=== PATIENT | female | born 1985 | race Caucasian/White ===

== ENCOUNTER 2016-11-11 08:19 | Inpatient (IN) | payer OTHER ==
[~2016-11-11] VITALS: Ht 162.6 cm; Wt 85.3 kg
[~2016-11-11 08:19] MED LIST: CIPR500T4 PO; IBUP-1542 PO; NITR-58 PO; PHEN-616 PO
[2016-11-11 08:40] VITALS: Ht 162.6 cm; Wt 85.3 kg
[2016-11-11 08:41] VITALS: BP 115/66; PULSE 73; RESP 16
--- NOTE | 2016-11-11 09:12 | TRIAGE ---
OB Triage Datetime Report Generated by CPN: 11/11/2016 09:12 Datetime: 11/11/2016 09:08 Labor Evaluation Pattern: Normal: <= 5 Contractions in 10 Minutes Resting Tone [place]: Relaxed Contraction Comments: NO UC Heart Rate FHR Baseline Rate: 145 Monitor Mode: External US Variability: Moderate 6-25 bpm Accelerations: 15X15 Decelerations: None Category: Category I Pain Assessment Pain Scale: 4 Pain Presence: Intermittent Pain Type: Contraction Pain Location: Abdomen Pain Goal: 3 Datetime: 11/11/2016 08:45 Vaginal Exam Dilatation (cms): 0.0 Exam By: wliu Datetime: 11/11/2016 08:38 Assessment Type: Triage Maternal Assessment Level of Consciousness: Fully Conscious DTR's/Clonus: DTRs 2+; No Clonus Headache: Denies Blurred Vision: No Respiratory Effort: Unlabored; Regular Rhythm; Equal Expansion Breath Sounds, Left: Clear and Equal Breath Sounds, Right: Clear and Equal Nausea/Vomiting: Denies RUQ Epigastric Pain: Denies Lower Extremities Edema: None Degree: None Upper Extremities Edema: None Degree: None Facial Edema: None Fall Risk Assessment History of Falling: (0) No Secondary Diagnosis: (0) No Ambulatory Aid: (0) Bedrest/Nurse Assist IV Therapy: (0) No Gait: (0) Normal/Bedrest/Immobile Mental Status: (0) Oriented to Own Ability Fall Score: 0 Fall Risk Score Definition: No Risk: No action required Datetime: 11/11/2016 08:36 Time of Arrival: 11/11/2016 08:16 EGA: 31.5 Arrived By: Ambulatory Arrived From: Home Chief Complaint: Pt. came to hospital c/o uc since yesterday 1130 am, q 4mins apart, pain level 4/ 10, deny srom, deny vag. bleeding Movement: Present Contractions: Irregular Time Contractions Began: 11/10/2016 11:30 Rupture of Membranes: Denies Vaginal Bleeding: None Vaginal Discharge: Denies Recent Sexual Intercouse: Denies Abdominal Trauma: Not Applicable Patient Complaints: Contractions Time Provider Notified: 11/11/2016 08:49 Provider Notified: TESSA Initial Plan: r/o ptl
[2016-11-11] MEDS ORDERED: TERBUTALINE 1 MG/ML INJ SC PRN (10:00)
[2016-11-11] MEDS ORDERED: AMPICILLIN 2 GM/NS (PMX) 100 ML IV PRN (10:00)
--- NOTE | 2016-11-11 10:08 | RADRPT ---
PROCEDURE: US OB. CLINICAL INDICATION: Size and dates , labor TECHNIQUE: Multiple sonographic images of the pelvis and gravid uterus were obtained. The images were reviewed on a PACS workstation. COMPARISON: No prior studies are available for comparison. FINDINGS: There is a single viable intrauterine gestation. Cardiac activity is present with 165 beats per min shaji. There is a vertex presentation. The placenta is anterior. There is no evidence for an abruption or placenta previa. Measurements were made in order to determine age. The results are as follows: BPD =8.0 cm HC =27.9 cm AC =27.1 cm FL =5.6 cm Estimated gestational age of approximately 30 weeks and 6 days based on ultrasound measurements. Clinical age: 31 weeks and 5 days. The estimated date of delivery is 01/14/17, based on ultrasound measurements. The EFW = 1619 g, 12.7%, based on LMP age. RPTAT: AA IMPRESSION: Single viable intrauterine gestation of approximately 30 weeks and 6 days based on ultrasound measu rements. .Jah Harris MD, Date Time Electronically viewed and signed by .Jah Harris MD, MD on 11/11/2016 10:08 .S/
[2016-11-11] MEDS: BETAMET NA PHOS/AC(6 MG/ML) 5ML INJ IM SCH (10:24)
--- NOTE | 2016-11-11 10:41 | RADRPT ---
PROCEDURE: US OB biophysical profile. Ultrasound cervix CLINICAL INDICATION: decreased movements, labor TECHNIQUE: Multiple sonographic images of the pelvis were obtained. The images were reviewed on a PACS workstation. In addition transvaginal images of the cervix were obtained. COMPARISON: No prior studies are available for comparison. FINDINGS: There is a single viable intrauterine gestation. Cardiac activity is present with 165 beats per min [place]. There is a vertex presentation. The placenta is posterior. There is no evidence of placental abruption. There is a normal amount of amniotic fluid with an JANETTE = 11.2 cm. The cervix is closed and measures 3.8 cm in length. Biophysical profile: movement 2/2 tone 2/2. breathing 2/2 JANETTE 2/2 Total 03/04 RPTAT: AA . IMPRESSION: Normal biophysical profile. Cervix is closed and measures 3.8 cm in length. . .Jah Harris MD, MD Date Time Electronically viewed and signed by .Jah Harris MD, MD on 11/11/2016 10:41 .S/
[2016-11-11] MEDS: LACTATED RINGER'S 1,000 ML IV SCH ×2 (11:24→18:22)
--- NOTE | 2016-11-11 13:59 | CONS ---
DATE OF ADMISSION: 11/11/2016 DATE OF CONSULTATION: 11/11/2016 REASON FOR CONSULTATION: Admission for labor at 31 and 5/7 week. HISTORY OF PRESENT ILLNESS: Rosamaria Kelly is a 31-year-old 6, para 5 with four term and one premature infant. Five of the infants are living. The due date is 12/29/2016. Gestation is 31 and 5/7 weeks. She came in with labor. Membranes are not ruptured. There is no fever. S he denies health problems. No medications, smoking, drinking or alcohol. She is blood type O posit linda, RPR nonreactive, hepatitis B antigen negative, and HIV negative, group B strep not done. She h ad 3 previous C-sections and the last baby was born at about 35 weeks, weighing 4 pounds 15 ounces, born in [facility] who seems to have delayed speech. I spoke to Mrs. Kelly about the risks related to prematurity such as general risks for delayed dev elopment both mentally as well as muscle tone and control of muscles, neurodevelopmental problems, a s well as respiratory, feeding, infection, transfusion, possible need for line such as umbilical, ar terial, or PICC lines, the risk of infection including spinal tap and many other issues. Survival should be well over 90% at this gestational age, but still risks for the problems related t o prematurity and inherent need for hospitalization until close to the due date or longer. I answered all her questions and there were none at the time of the end of our interview. Thank you very much for allowing me to assist in the care of this family. The mother is receiving s teroids at this time and intravenous hydration. Dictated By: SHARIF WHITMORE/EILEEN Conf#: [id number] DID#: [id number]
[2016-11-11] MEDS: AL HYDROX/MG HYDROX/SIMETH 30 ML CUP PO PRN ×2 (18:17→22:21)
[2016-11-12] MEDS: LACTATED RINGER'S 1,000 ML IV SCH ×2 (02:11→10:25)
[2016-11-12] MEDS: BETAMET NA PHOS/AC(6 MG/ML) 5ML INJ IM SCH (10:19)
[2016-11-12] MEDS ORDERED: ACETAMINOPHEN 325 MG TAB PO PRN (10:30)
[2016-11-12] MEDS: AL HYDROX/MG HYDROX/SIMETH 30 ML CUP PO PRN (10:34)
--- NOTE | 2016-11-12 18:30 | CONS ---
Date/Time of Note Date/Time of Note DATE: 11/12/16 TIME: 18:25 Consultation Date/Type/Reason Admit Date/Time November 12, 2006 Hospital consult and discharge This patient is a 31 years old 6 para 5 with EDC of 01/09/2016 which makes her about 31 weeks and 6 She came to the hospital yesterday complaining of contractions prematurely On examination he did have some contractions the cervical length was performed which was 3.8 Her biophysical profile came out 03/04 The estimated weight of the baby 1619 g patient was hospital was given betamethasone twice 12 hours apart today she is doing better much of contraction heart tone is normal with good variability and occasional acceleration no B-cell Hx of Present Illness She was discharged today and before discharge she was given a new prescription for Procardia 20 mg tablets to be taken every 6 hours She was advised to rest at home and return in clinic in 1 week End of dictation thank Constitutional: improved, No chills, No diaphoresis, No disoriented, No febrile, No no complaints, No other, No poor po, No requiring IVF, No requiring O2 Eyes: No discharge, No no complaints, No other, No pain, No redness, No visual change ENT: No bleeding, No congestion, No discharge, No dysphagia, No no complaints, No other, No pain, No sore throat Respiratory: No cough, No no complaints, No other, No pain, No pleuritic pain, No shortness of breath, No sputum, No wheezing Cardiovascular: No chest pain, No edema, No lightheadedness, No no complaints, No orthopenea, No other, No palpitations, No paroxysmal nocturnal dyspnea Gastrointestinal: No blood, No constipation, No decreased appetite, No diarrhea , No flatus, No nausea, No no complaints, No other, No pain, No passing stool, No vomiting Genitourinary: other (No discharge or bleeding pelvic exam was not performed today), No bleeding, No discharge, No dysuria, No flank pain, No hematuria, No no complaints Musculoskeletal: No back pain, No bone/joint pain, No neck pain, No no complaints, No other, No restricted range of motion, No swelling Skin: No bruising, No erythema, No laceration, No no complaints, No other, No pruritis, No rash, No skin lesions Neurologic: No confusion, No dizziness, No focal-weakness, No headache, No no complaints, No other, No seizure, No syncope Endocrine: No dry skin, No no complaints, No other, No polydypsia, No polyuria , No temp intolerance Lymphatic: No adenopathy, No lymphadema, No no complaints, No other, No tender nodes Additional Comments Current Medications Medications (Trade) Dose Ordered Sig/Amanda Route PRN Reason Start Time Stop Time Status Last Admin Dose Admin Lactated Ringer's (Lr) 1,000 ml @ 125 mls/hr Q8H IV 11/11/16 09:41 11/12/16 10:25 125 MLS/HR Terbutaline Sulfate (Brethine) 0.25 mg Q3H PRN SC uc 11/11/16 10:00 Betamethasone Acet/Betameth SodPhos 12 mg 12 mg Q24H IM 11/11/16 10:00 11/12/16 10:01 DC 11/12/16 10:19 12 MG Ampicillin (Ampicillin 2 Gm/ NS (Pmx)) 100 ml @ 100 mls/hr Q6 PRN IV if uc 11/11/16 10:00 UNV Al Hydrox/Mg Hydrox/Simethicone (Mag-Al Plus) 30 ml Q4H PRN PO GASTROINTESTINAL UPSET 11/11/16 18:30 11/12/16 10:34 30 ML Acetaminophen (Tylenol Tab) 650 mg Q6H PRN PO PAIN AND OR ELEVATED TEMP 11/12/16 10:30 11/12/16 10:34 650 MG Social History Smoking Status: Never smoker Exam/Review of Systems Vital Signs Vitals Vital Signs Date Time Temp Pulse Resp B/P Pulse Ox O2 Delivery O2 Flow Rate FiO2 11/11/16 08:41 98.0 73 16 115/66 Intake and Output 11/11/16 11/11/16 11/12/16 15:00 23:00 07:00 Intake Total 500 ml 2000 ml 1325 ml Output Total 1150 ml 1650 ml Balance 500 ml 850 ml -325 ml Medications Medications Current Medications Lactated Ringer's (Lr) 1,000 ml @ 125 mls/hr Q8H IV Last administered on t 10:25; Admin Dose 125 MLS/HR; Start 11/11/16 at 09:41 Terbutaline Sulfate 0.25 mg 0.25 mg Q3H PRN SC uc; Start 11/11/16 at 10:00 Ampicillin (Ampicillin 2 Gm/ NS (Pmx)) 100 ml @ 100 mls/hr Q6 PRN IV if uc; Start 11/11/16 at 10:00; Status UNV Al Hydrox/Mg Hydrox/Simethicone (Mag-Al Plus) 30 ml Q4H PRN PO GASTROINTESTINAL UPSET Last administered on 11/12/16 10:34; Admin Dose 30 ML; Start 11/11/16 at 18:30 Acetaminophen (Tylenol Tab) 650 mg Q6H PRN PO PAIN AND OR ELEVATED TEMP Last administered on 11/12/16 10:34; Admin Dose 650 MG; Start 11/12/16 at 10:30 ANTWAN GALLAGHER MD Nov 12, 2016 18:30
[2016-11-12] MEDS ORDERED: PRENAT PO (18:42)
== END 2016-11-12 19:35 | disposition home or self-care (01) | DRG 780 ==
LOC: OBT 08:19 → L-D 08:20 → OBG 09:00 → OBT 09:00
PROVIDERS: ADMIT Obstetrics & Gynecology; ATTEND Obstetrics & Gynecology
DX: O47.03 False labor before 37 completed weeks of gestation, third trimester (principal); Z3A.31 31 weeks gestation of pregnancy
CPT/HCPCS: 76816; 76817; 76818; G0463; J0702; J7120

== ENCOUNTER 2016-12-18 08:34 | Outpatient (CLI) | payer OTHER ==
[~2016-12-18] VITALS: Ht 162.6 cm; Wt 87.2 kg
[~2016-12-18 08:34] MED LIST changes: -CIPR500T4 PO; -IBUP-1542 PO; -NITR-58 PO; -PHEN-616 PO; +PRENAT PO
[2016-12-18 08:47] VITALS: BP 110/60; PULSE 77; RESP 18; Ht 162.6 cm; Wt 87.2 kg
[2016-12-18] MEDS ORDERED: TERBUTALINE 1 MG/ML INJ SC ONE (10:00)
[2016-12-18] MEDS: LACTATED RINGER'S 1,000 ML IV SCH ×2 (10:07→12:25)
--- NOTE | 2016-12-18 10:08 | RADRPT ---
PROCEDURE: OB ultrasound for biophysical profile CLINICAL INDICATION: Contractions. TECHNIQUE: Multiple sonographic images of the pelvis were obtained. Transabdominal view of the gr avid uterus are available for review. The images were reviewed on a PACS workstation. COMPARISON: 11/11/2016. FINDINGS: breathing movement = 2/2 tone = 2/2 motion = 2/2 Quantitative amniotic fluid volume = 2/2 JANETTE = 8.8 cm Single live intrauterine with cardiac activity at 163 beats per minute. There is a posterior placenta without previa. IMPRESSION: 1. Single living intrauterine gestation in cephalic position. 2. Biophysical profile = 03/04. 3. JANETTE = 8.8 cm. RPTAT: [facility] Physician Carlos Date Time Electronically viewed and signed by Physician Carlos on 12/18/2016 10:08 /
[2016-12-18 10:20] LABS: ADD UMIC YES; URINE BILIRUBIN (Dip) NEGATIVE (NEGATIVE); URINE BLOOD (Dip) NEGATIVE (NEGATIVE); URINE COLOR LT. YELLOW (YELLOW); URINE GLUCOSE (Dip) NEGATIVE (NEGATIVE); URINE KETONES (Dip) NEGATIVE (NEGATIVE); URINE LEUKOCYTE ESTERASE (Dip) 1+ (NEGATIVE); URINE NITRITE (Dip) NEGATIVE (NEGATIVE); URINE TOTAL PROTEIN (Dip) NEGATIVE (NEGATIVE); URINE UROBILINOGEN (Dip) 0.2 E.U./dL (0.1-1.0)
[2016-12-18 10:35] LABS: BACTERIA,URINE FEW; SQUAMOUS EPITHELIAL CELL,UR MODERATE; URINE RBCS NONE SEEN /HPF (0)
--- NOTE | 2016-12-18 12:13 | QN ---
Documentation Comment 11-year-old with IUP at 37 weeks with history of 3 presented with complaint of feeling uterine contractions since 6:00 in the morning. She reports small amount of leaking intermittently. Denies any vaginal bleeding or decreased movement. [facility]. Denies any complications during . physical examination: General appearance: Alert and oriented 4 patient does not appear to be in any acute distress CV: RRR Lungs: Clear to auscultation bilaterally Abdomen: Soft, gravid, fundal height consistent with gestational age, nontender , no rebound tenderness, no guarding Vaginal exam: 0.5/50/-2 BPP: 8/8 JANETTE: 8.8 Patient had contractions every 15 minutes status post 1 dose of terbutaline ordered by Dr. Sarabia, contractions resolved.. Patient did not feel any contractions after 1 dose of terbutaline when she was observed and was feeling comfortable without any pain ROM + : SSE: Assessment: IUP at 37 weeks History of 3 Mild uterine cramps/contractions. Resolved with hydration and 1 dose of terbutaline BPP reassuring No evidence of PROM Plan: DC home Strict labor precaution and kick counts and follow-up in 1-2 days with her primary OB office recommended Patient lives about 15 minutes of the hospital. Strict labor precaution was given and advised the patient to return to triage immediately if she feels any abdominal pain or recurrence of cramps or any other symptoms. Patient verbalized understanding. All questions were answered to the patient's best satisfaction. RUDDY CASON MD December 18, 2016 12:13
--- NOTE | 2016-12-18 13:11 | TRIAGE ---
OB Triage Datetime Report Generated by CPN: 12/18/2016 13:10 Datetime: 12/18/2016 12:00 Stage of : OB Triage Maternal Assessment Level of Consciousness: Fully Conscious Labor Evaluation Frequency: 3UC/HR Monitor Mode: External Duration (sec)2399: 60-120 Quality: Mild Resting Tone [place]: Relaxed Monitor Mode: ORDERS FOR LIMITED MONITORING Pain Assessment Pain Scale: 0 Pain Presence: None/Denies Pain Goal: 3 Membrane Status: Intact Vaginal Bleeding: None Datetime: 12/18/2016 11:38 Pool: Negative Nitrazine: Negative Datetime: 12/18/2016 11:00 Stage of : OB Triage Maternal Assessment Level of Consciousness: Fully Conscious Labor Evaluation Frequency: 2UC/HR Monitor Mode: External Duration (sec)2399: 90 Quality: Mild Resting Tone [place]: Relaxed Heart Rate FHR Baseline Rate: 145 Monitor Mode: External US Variability: Moderate 6-25 bpm Accelerations: 15X15 Decelerations: None Pain Assessment Pain Scale: 0 Pain Presence: None/Denies Pain Goal: 3 Membrane Status: Intact Vaginal Bleeding: None Datetime: 12/18/2016 09:41 Comments: MONITORS OFF FOR BEDSIDE U/S. Datetime: 12/18/2016 09:40 Stage of : OB Triage Maternal Assessment Level of Consciousness: Fully Conscious Labor Evaluation Frequency: 2UC/HR Monitor Mode: External Duration (sec)2399: 70-100 Quality: Mild Resting Tone [place]: Relaxed Heart Rate FHR Baseline Rate: 145 Monitor Mode: External US Variability: Moderate 6-25 bpm Accelerations: 15X15 Decelerations: None Pain Assessment Pain Scale: 0 Pain Presence: None/Denies Pain Goal: 3 Membrane Status: Intact Vaginal Bleeding: None Datetime: 12/18/2016 08:51 Vaginal Exam Dilatation (cms): 0.5 Effacement (%): 50 Station: -2 Exam By: neha Vaginal Bleeding: None Cervix, Consistency: Moderate Cervix, Position: Midposition Datetime: 12/18/2016 08:44 Assessment Type: Triage Maternal Assessment Level of Consciousness: Fully Conscious DTR's/Clonus: DTRs 2+; No Clonus Headache: Denies Blurred Vision: No Respiratory Effort: Unlabored; Regular Rhythm; Equal Expansion Breath Sounds, Left: Clear and Equal Breath Sounds, Right: Clear and Equal Nausea/Vomiting: Denies RUQ Epigastric Pain: Denies Lower Extremities Edema: None Degree: None Upper Extremities Edema: None Degree: None Facial Edema: None Fall Risk Assessment History of Falling: (0) No Secondary Diagnosis: (0) No Ambulatory Aid: (0) Bedrest/Nurse Assist IV Therapy: (0) No Gait: (0) Normal/Bedrest/Immobile Mental Status: (0) Oriented to Own Ability Fall Score: 0 Fall Risk Score Definition: No Risk: No action required Datetime: 12/18/2016 08:43 Time of Arrival: 12/18/2016 08:30 EGA: 37.0 Arrived By: Wheelchair Arrived From: Home Chief Complaint: PT HERE C/O UC'S SINCE 0600 Movement: Present Rupture of Membranes: Denies Vaginal Discharge: Present Recent Sexual Intercouse: Denies Abdominal Trauma: Not Applicable Patient Complaints: Contractions; Cramping; Back Pain Time Provider Notified: 12/18/2016 09:29 Provider Notified: TESSA Initial Plan: IV HYDRATION , TERB, SVE, BPP, UA ROM PLUS Datetime: 12/18/2016 08:41 Monitor Mode: External Monitor Mode: External US Datetime: 11/12/2016 19:35 Stage of : Antepartum Pain Assessment Pain Scale: 0 Pain Presence: None/Denies Pain Goal: 0 Pain Assessment Comments: PT DENIES LEAKING OR BLEEDING. Datetime: 11/12/2016 18:00 Labor Evaluation Frequency: 0 Monitor Mode: External Pattern: Normal: <= 5 Contractions in 10 Minutes Resting Tone [place]: Relaxed Heart Rate FHR Baseline Rate: 130 Monitor Mode: External US FHR Baseline Changes: No Baseline Change Variability: Moderate 6-25 bpm Accelerations: 15X15 Decelerations: None Category: Category I Datetime: 11/12/2016 17:00 Labor Evaluation Frequency: 0 Monitor Mode: External Pattern: Normal: <= 5 Contractions in 10 Minutes Resting Tone [place]: Relaxed Heart Rate FHR Baseline Rate: 130 Monitor Mode: External US FHR Baseline Changes: No Baseline Change Variability: Moderate 6-25 bpm Accelerations: 15X15 Decelerations: None Category: Category I Datetime: 11/12/2016 16:00 Temperature Route: Oral Labor Evaluation Frequency: 0 Monitor Mode: External Pattern: Normal: <= 5 Contractions in 10 Minutes Resting Tone [place]: Relaxed Heart Rate FHR Baseline Rate: 140 Monitor Mode: External US FHR Baseline Changes: No Baseline Change Variability: Moderate 6-25 bpm Accelerations: 15X15 Decelerations: None Category: Category I Datetime: 11/12/2016 15:00 Labor Evaluation Frequency: X1/HR Monitor Mode: External Duration (sec)2399: 50 Pattern: Normal: <= 5 Contractions in 10 Minutes Resting Tone [place]: Relaxed Heart Rate FHR Baseline Rate: 140 Monitor Mode: External US FHR Baseline Changes: No Baseline Change Variability: Moderate 6-25 bpm Accelerations: 15X15 Decelerations: None Category: Category I Datetime: 11/12/2016 14:00 Labor Evaluation Frequency: 0 Monitor Mode: External Pattern: Normal: <= 5 Contractions in 10 Minutes Resting Tone [place]: Relaxed Heart Rate FHR Baseline Rate: 130 Monitor Mode: External US FHR Baseline Changes: No Baseline Change Variability: Moderate 6-25 bpm Accelerations: 15X15 Decelerations: None Category: Category I Datetime: 11/12/2016 13:00 Labor Evaluation Frequency: 0 Monitor Mode: External Pattern: Normal: <= 5 Contractions in 10 Minutes Resting Tone [place]: Relaxed Heart Rate FHR Baseline Rate: 120 Monitor Mode: External US FHR Baseline Changes: No Baseline Change Variability: Moderate 6-25 bpm Accelerations: 15X15 Decelerations: None Category: Category I Datetime: 11/12/2016 12:00 Temperature Route: Oral Labor Evaluation Frequency: 0 Monitor Mode: External Pattern: Normal: <= 5 Contractions in 10 Minutes Resting Tone [place]: Relaxed Heart Rate FHR Baseline Rate: 130 Monitor Mode: External US FHR Baseline Changes: No Baseline Change Variability: Moderate 6-25 bpm Accelerations: 15X15 Decelerations: None Category: Category I Datetime: 11/12/2016 10:00 Labor Evaluation Frequency: X1/HR Monitor Mode: External Duration (sec)2399: 50 SEC Pattern: Normal: <= 5 Contractions in 10 Minutes Resting Tone [place]: Relaxed Heart Rate FHR Baseline Rate: 140 Monitor Mode: External US FHR Baseline Changes: No Baseline Change Variability: Moderate 6-25 bpm Accelerations: 15X15 Decelerations: None Category: Category I Datetime: 11/12/2016 09:00 Labor Evaluation Frequency: IRRIT Monitor Mode: External Pattern: Normal: <= 5 Contractions in 10 Minutes Resting Tone [place]: Relaxed Heart Rate FHR Baseline Rate: 130 Monitor Mode: External US FHR Baseline Changes: No Baseline Change Variability: Moderate 6-25 bpm Accelerations: 15X15 Decelerations: None Category: Category I Datetime: 11/12/2016 08:00 Maternal Assessment Level of Consciousness: Fully Conscious DTR's/Clonus: DTRs 2+; No Clonus Headache: Denies Breath Sounds, Left: Clear and Equal Breath Sounds, Right: Clear and Equal Nausea/Vomiting: Denies RUQ Epigastric Pain: Denies Temperature Route: Oral Labor Evaluation Frequency: 0 Monitor Mode: External Pattern: Normal: <= 5 Contractions in 10 Minutes Resting Tone [place]: Relaxed Heart Rate FHR Baseline Rate: 135 Monitor Mode: External US FHR Baseline Changes: No Baseline Change Variability: Moderate 6-25 bpm Accelerations: 15X15 Decelerations: None Category: Category I Datetime: 11/12/2016 07:28 Assessment Type: Ongoing Assessment Blurred Vision: No Respiratory Effort: Unlabored; Regular Rhythm; Equal Expansion Lower Extremities Edema: None Degree: None Upper Extremities Edema: None Degree: None Facial Edema: None Fall Risk Assessment History of Falling: (0) No Secondary Diagnosis: (0) No Ambulatory Aid: (0) Bedrest/Nurse Assist Gait: (0) Normal/Bedrest/Immobile Mental Status: (0) Oriented to Own Ability Datetime: 11/12/2016 06:55 Labor Evaluation Frequency: 0 Monitor Mode: External Resting Tone [place]: Relaxed Heart Rate FHR Baseline Rate: 140 Monitor Mode: External US Variability: Moderate 6-25 bpm Accelerations: 15X15 Decelerations: Variable Category: Category II Pain Presence: None/Denies Pain Type: N/A Datetime: 11/12/2016 05:55 Labor Evaluation Frequency: 0 Monitor Mode: External Resting Tone [place]: Relaxed Heart Rate FHR Baseline Rate: 135 Monitor Mode: External US Variability: Moderate 6-25 bpm Accelerations: 15X15 Decelerations: Variable Category: Category II Datetime: 11/12/2016 04:55 Labor Evaluation Frequency: 0 Monitor Mode: External Resting Tone [place]: Relaxed Heart Rate FHR Baseline Rate: 135 Monitor Mode: External US Variability: Moderate 6-25 bpm Accelerations: 15X15 Decelerations: None Category: Category I Pain Presence: None/Denies Pain Type: N/A Datetime: 11/12/2016 03:52 Labor Evaluation Frequency: 0 Monitor Mode: External Resting Tone [place]: Relaxed Heart Rate FHR Baseline Rate: 135 Variability: Moderate 6-25 bpm Accelerations: 15X15 Decelerations: None Category: Category I Comments: STRIP REVIEW FROM [id number] Datetime: 11/12/2016 02:55 Labor Evaluation Frequency: 0 Monitor Mode: External Resting Tone [place]: Relaxed Heart Rate FHR Baseline Rate: 130 Monitor Mode: External US Variability: Moderate 6-25 bpm Accelerations: 15X15 Decelerations: None Category: Category I Pain Presence: None/Denies Pain Type: N/A Datetime: 11/12/2016 01:55 Labor Evaluation Frequency: 0 Monitor Mode: External Resting Tone [place]: Relaxed Heart Rate FHR Baseline Rate: 135 Monitor Mode: External US Variability: Moderate 6-25 bpm Accelerations: 15X15 Decelerations: Variable Category: Category II Datetime: 11/12/2016 00:55 Labor Evaluation Frequency: 0 Monitor Mode: External Resting Tone [place]: Relaxed Heart Rate FHR Baseline Rate: 140 Monitor Mode: External US Variability: Moderate 6-25 bpm Accelerations: 15X15 Decelerations: None Pain Presence: None/Denies Pain Type: N/A Datetime: 11/11/2016 23:55 Labor Evaluation Frequency: 0 Monitor Mode: External Resting Tone [place]: Relaxed Heart Rate FHR Baseline Rate: 140 Monitor Mode: External US Variability: Moderate 6-25 bpm Accelerations: 15X15 Decelerations: None Category: Category I Comments: loss of contact due to maternal movements. Pain Presence: None/Denies Pain Type: N/A Datetime: 11/11/2016 22:55 Labor Evaluation Frequency: 0 Monitor Mode: External Duration (sec)2399: denies Resting Tone [place]: Relaxed Heart Rate FHR Baseline Rate: 145 Monitor Mode: External US Variability: Moderate 6-25 bpm Accelerations: 15X15 Decelerations: None Category: Category I Pain Presence: None/Denies Pain Type: N/A Datetime: 11/11/2016 21:55 Labor Evaluation Frequency: 0 Monitor Mode: External Duration (sec)2399: denies Resting Tone [place]: Relaxed Heart Rate FHR Baseline Rate: 135 Monitor Mode: External US Variability: Moderate 6-25 bpm Accelerations: 15X15 Decelerations: None Category: Category I Pain Presence: None/Denies Pain Type: N/A Datetime: 11/11/2016 20:55 Labor Evaluation Frequency: 0 Monitor Mode: External Duration (sec)2399: denies Resting Tone [place]: Relaxed Heart Rate FHR Baseline Rate: 135 Monitor Mode: External US Variability: Moderate 6-25 bpm Accelerations: 15X15 Decelerations: None Category: Category I Pain Presence: None/Denies Pain Type: N/A Datetime: 11/11/2016 19:55 Labor Evaluation Frequency: 0 Monitor Mode: External Resting Tone [place]: Relaxed Heart Rate FHR Baseline Rate: 140 Monitor Mode: External US Variability: Moderate 6-25 bpm Accelerations: 15X15 Decelerations: None Category: Category I Pain Presence: None/Denies Pain Type: N/A Datetime: 11/11/2016 19:27 Stage of : Antepartum Assessment Type: Ongoing Assessment Maternal Assessment Level of Consciousness: Fully Conscious DTR's/Clonus: DTRs 2+; No Clonus Headache: Denies Blurred Vision: No Respiratory Effort: Unlabored; Regular Rhythm; Equal Expansion Breath Sounds, Left: Clear and Equal Breath Sounds, Right: Clear and Equal Nausea/Vomiting: Denies RUQ Epigastric Pain: Denies Lower Extremities Edema: None Degree: None Upper Extremities Edema: None Degree: None Facial Edema: None Temperature Route: Oral Fall Risk Assessment History of Falling: (0) No Secondary Diagnosis: (0) No Ambulatory Aid: (0) Bedrest/Nurse Assist IV Therapy: (0) No Gait: (0) Normal/Bedrest/Immobile Mental Status: (0) Oriented to Own Ability Fall Score: 0 Fall Risk Score Definition: No Risk: No action required Pain Presence: None/Denies Datetime: 11/11/2016 18:56 Stage of : Antepartum Labor Evaluation Frequency: 0 Monitor Mode: External Duration (sec)2399: 0 Resting Tone [place]: Relaxed Heart Rate FHR Baseline Rate: 140 Monitor Mode: External US FHR Baseline Changes: No Baseline Change Variability: Moderate 6-25 bpm Accelerations: 15X15 Decelerations: None Pain Assessment Pain Scale: 0 Pain Presence: None/Denies Pain Type: N/A Pain Goal: 0 Datetime: 11/11/2016 17:58 Stage of : Antepartum Labor Evaluation Frequency: 0 Monitor Mode: External Duration (sec)2399: 0 Resting Tone [place]: Relaxed Heart Rate FHR Baseline Rate: 135 Monitor Mode: External US FHR Baseline Changes: No Baseline Change Variability: Moderate 6-25 bpm Accelerations: 15X15 Decelerations: None Pain Assessment Pain Scale: 0 Pain Presence: None/Denies Pain Type: N/A Pain Goal: 0 Pain Relief Measures: Comfort Measures Pain Assessment Comments: heart burn relived by Mylanata Datetime: 11/11/2016 16:58 Stage of : Antepartum Labor Evaluation Frequency: 0 Monitor Mode: External Duration (sec)2399: 0 Resting Tone [place]: Relaxed Heart Rate FHR Baseline Rate: 120 Monitor Mode: External US FHR Baseline Changes: No Baseline Change Variability: Moderate 6-25 bpm Accelerations: 15X15 Decelerations: None Pain Assessment Pain Scale: 0 Pain Presence: None/Denies Pain Type: N/A Pain Goal: 0 Pain Relief Measures: Comfort Measures Datetime: 11/11/2016 15:58 Stage of : Antepartum Maternal Assessment Level of Consciousness: Fully Conscious DTR's/Clonus: DTRs 2+; No Clonus Headache: Denies Breath Sounds, Left: Clear and Equal Breath Sounds, Right: Clear and Equal Nausea/Vomiting: Denies RUQ Epigastric Pain: Denies Labor Evaluation Frequency: 0 Monitor Mode: External Duration (sec)2399: 0 Resting Tone [place]: Relaxed Heart Rate FHR Baseline Rate: 120 Monitor Mode: External US FHR Baseline Changes: No Baseline Change Variability: Moderate 6-25 bpm Accelerations: 15X15 Decelerations: None Pain Assessment Pain Scale: 0 Pain Presence: None/Denies Pain Type: N/A Pain Goal: 0 Pain Relief Measures: Comfort Measures Membrane Status: Intact Datetime: 11/11/2016 14:10 Stage of : Antepartum Maternal Assessment Level of Consciousness: Fully Conscious DTR's/Clonus: DTRs 2+; No Clonus Headache: Denies Blurred Vision: No Breath Sounds, Left: Clear and Equal Breath Sounds, Right: Clear and Equal Nausea/Vomiting: Denies RUQ Epigastric Pain: Denies Facial Edema: None Labor Evaluation Frequency: 0 Monitor Mode: External Duration (sec)2399: 0 Resting Tone [place]: Relaxed Heart Rate FHR Baseline Rate: 120 Monitor Mode: External US FHR Baseline Changes: No Baseline Change Variability: Moderate 6-25 bpm Accelerations: 15X15 Decelerations: None Category: Category I Pain Assessment Pain Scale: 0 Pain Presence: None/Denies Pain Type: N/A Pain Goal: 0 Pain Relief Measures: Comfort Measures Membrane Status: Intact Datetime: 11/11/2016 12:58 Stage of : OB Triage Labor Evaluation Frequency: 0 Monitor Mode: External Duration (sec)2399: 0 Resting Tone [place]: Relaxed Heart Rate FHR Baseline Rate: 135 Monitor Mode: External US FHR Baseline Changes: No Baseline Change Variability: Moderate 6-25 bpm Accelerations: 15X15 Decelerations: None Category: Category I Datetime: 11/11/2016 12:38 Stage of : Antepartum Maternal Assessment Level of Consciousness: Fully Conscious Headache: Denies Nausea/Vomiting: Denies RUQ Epigastric Pain: Denies Labor Evaluation Frequency: 0 Monitor Mode: External Duration (sec)2399: 0 Resting Tone [place]: Relaxed Heart Rate FHR Baseline Rate: 135 Monitor Mode: External US FHR Baseline Changes: No Baseline Change Variability: Moderate 6-25 bpm Accelerations: 15X15 Decelerations: None Pain Assessment Pain Scale: 0 Pain Presence: None/Denies Pain Type: N/A Pain Goal: 0 Datetime: 11/11/2016 12:08 Stage of : Antepartum Labor Evaluation Frequency: 0 Monitor Mode: External Duration (sec)2399: 0 Resting Tone [place]: Relaxed Heart Rate FHR Baseline Rate: 150 Monitor Mode: External US FHR Baseline Changes: No Baseline Change Variability: Moderate 6-25 bpm Accelerations: 15X15 Decelerations: None Category: Category I Datetime: 11/11/2016 12:04 Stage of : Antepartum Temperature Route: Oral Datetime: 11/11/2016 11:40 Maternal Assessment Level of Consciousness: Fully Conscious Headache: Denies Nausea/Vomiting: Denies RUQ Epigastric Pain: Denies Labor Evaluation Frequency: 0 Monitor Mode: External Duration (sec)2399: 0 Resting Tone [place]: Relaxed Heart Rate FHR Baseline Rate: 150 Monitor Mode: External US FHR Baseline Changes: No Baseline Change Variability: Moderate 6-25 bpm Accelerations: 15X15 Decelerations: None Category: Category I Pain Assessment Pain Scale: 0 Pain Presence: None/Denies Pain Type: N/A Pain Goal: 0 Datetime: 11/11/2016 10:27 Pain Assessment Pain Scale: 0 Pain Presence: None/Denies Pain Type: N/A Pain Goal: 0 Datetime: 11/11/2016 10:10 Stage of : Antepartum Datetime: 11/11/2016 09:30 Stage of : Antepartum Assessment Type: Admission Assessment Maternal Assessment Level of Consciousness: Fully Conscious DTR's/Clonus: DTRs 2+; No Clonus Headache: Denies Blurred Vision: No Respiratory Effort: Unlabored; Regular Rhythm; Equal Expansion Breath Sounds, Left: Clear and Equal Breath Sounds, Right: Clear and Equal Nausea/Vomiting: Denies RUQ Epigastric Pain: Denies Lower Extremities Edema: None Degree: None Upper Extremities Edema: None Degree: None Facial Edema: None Fall Risk Assessment History of Falling: (0) No Secondary Diagnosis: (0) No Ambulatory Aid: (0) Bedrest/Nurse Assist IV Therapy: (0) No Gait: (0) Normal/Bedrest/Immobile Mental Status: (0) Oriented to Own Ability Fall Score: 0 Fall Risk Score Definition: No Risk: No action required Datetime: 11/11/2016 09:23 Maternal Assessment Level of Consciousness: Fully Conscious DTR's/Clonus: DTRs 2+; No Clonus Headache: Denies Blurred Vision: No Respiratory Effort: Unlabored Breath Sounds, Left: Clear and Equal Breath Sounds, Right: Clear and Equal Nausea/Vomiting: Denies RUQ Epigastric Pain: Denies Facial Edema: None Labor Evaluation Frequency: 0 Monitor Mode: External Duration (sec)2399: 0 Resting Tone [place]: Relaxed Heart Rate FHR Baseline Rate: 150 Monitor Mode: External US FHR Baseline Changes: No Baseline Change Variability: Moderate 6-25 bpm Accelerations: 15X15 Decelerations: None Category: Category I Pain Assessment Pain Scale: 0 Pain Presence: None/Denies Pain Type: N/A Pain Goal: 0 Pain Relief Measures: Comfort Measures Membrane Status: Intact Datetime: 11/11/2016 08:38 Fall Score: 0 Fall Risk Score Definition: No Risk: No action required Datetime: 11/11/2016 08:36 EGA: 31.5
== END 2016-12-18 13:09 | disposition home or self-care (01) ==
LOC: OBT 08:34 → L-D 08:35 → OBT 13:09
PROVIDERS: ATTEND Obstetrics & Gynecology
DX: O62.9 Abnormality of forces of labor, unspecified (principal); O34.219 Maternal care for unspecified type scar from previous cesarean delivery; Z3A.37 37 weeks gestation of pregnancy
CPT/HCPCS: 76818; 81001; 84112; 96360; 96361; 96372; J3105; J7120; Z7500; G0463

== ENCOUNTER 2016-12-19 11:52 | Outpatient (CLI) | payer OTHER ==
[~2016-12-19] VITALS: Ht 162.6 cm; Wt 87.4 kg
[2016-12-19 11:58] VITALS: BP 127/61; PULSE 73; RESP 18
[2016-12-19 12:00] VITALS: Ht 162.6 cm; Wt 87.4 kg
--- NOTE | 2016-12-19 13:10 | TRIAGE ---
OB Triage Datetime Report Generated by CPN: 12/19/2016 13:10 Datetime: 12/19/2016 13:02 Frequency: IRREG Monitor Mode: External Duration (sec)2399: 50-90 Pattern: Normal: <= 5 Contractions in 10 Minutes Resting Tone [place]: Relaxed Contraction Comments: IRRITABILITY FHR Baseline Rate: 145 Monitor Mode: External US Variability: Moderate 6-25 bpm Accelerations: 15X15 Decelerations: None Category: Category I Pain Scale: 3 Pain Presence: Intermittent Pain Type: Contraction Pain Location: Abdomen Pain Relief Measures: Comfort Measures Datetime: 12/19/2016 11:56 Pain Scale: 7 Pain Presence: Intermittent Pain Type: Contraction Pain Location: Abdomen Pain Relief Measures: Comfort Measures Datetime: 12/19/2016 11:55 Assessment Type: Admission Assessment Level of Consciousness: Fully Conscious DTR's/Clonus: DTRs 2+; No Clonus Headache: Denies Blurred Vision: No Respiratory Effort: Unlabored; Regular Rhythm; Equal Expansion Breath Sounds, Left: Clear and Equal Breath Sounds, Right: Clear and Equal Nausea/Vomiting: Denies RUQ Epigastric Pain: Denies Lower Extremities Edema: None Degree: None Upper Extremities Edema: None Degree: None Facial Edema: None History of Falling: (0) No Secondary Diagnosis: (0) No Ambulatory Aid: (0) Bedrest/Nurse Assist IV Therapy: (0) No Gait: (0) Normal/Bedrest/Immobile Mental Status: (0) Oriented to Own Ability Fall Score: 0 Fall Risk Score Definition: No Risk: No action required Datetime: 12/19/2016 11:53 Stage of : OB Triage Time of Arrival: 12/19/2016 11:45 EGA: 37.1 Arrived By: Ambulatory Arrived From: Home Chief Complaint: CONTRACTIONS SINCE 929 THIS MORNING Movement: Present Contractions: Regular Time Contractions Began: 12/19/2016 09:30 Rupture of Membranes: Denies Vaginal Bleeding: None Vaginal Discharge: Denies Recent Sexual Intercouse: Denies Abdominal Trauma: Not Applicable Patient Complaints: Contractions Time Provider Notified: 12/19/2016 13:00 Provider Notified: DR. ZARATE Initial Plan: TOCO/ US
--- NOTE | 2017-02-13 18:36 | PN ---
Triage Information Date/Time 09/21/16 Weeks of Gestation 37 : 6 Para: 5 Assessment/Plan CONTRACTIONS ANTHONY ZARATE MD Feb 13, 2017 18:35
== END 2016-12-19 13:25 | disposition home or self-care (01) ==
LOC: OBT 11:52 → L-D 11:52 → OBT 13:25
PROVIDERS: ATTEND Obstetrics & Gynecology
DX: O62.9 Abnormality of forces of labor, unspecified (principal); Z3A.37 37 weeks gestation of pregnancy
CPT/HCPCS: G0463

== ENCOUNTER 2016-12-24 07:38 | Inpatient (IN) | payer OTHER ==
[2016-12-24] VITALS (8 sets, daily range): BP systolic 105–123; BP diastolic 56–75; PULSE 63–80; RESP 18–20; Ht 162.6 cm; Wt 87.1 kg
[~2016-12-24] VITALS: Ht 162.6 cm; Wt 87.1 kg
[2016-12-24] MEDS: LACTATED RINGER'S 1,000 ML IV SCH ×2 (09:11→12:12)
[2016-12-24] MEDS ORDERED: AMPICILLIN 2 GM/NS (PMX) 100 ML IV STA (12:45)
[2016-12-24] MEDS ORDERED: CARBOPROST 250 MCG INJ IM PRN ×2 (13:00→21:00)
[2016-12-24] MEDS ORDERED: MISOPROSTOL 200 MCG TAB PR PRN ×2 (13:00→21:00)
[2016-12-24] MEDS ORDERED: METHYLERGONOVINE 0.2 MG INJ IM PRN ×2 (13:00→21:00)
[2016-12-24] MEDS ORDERED: OXYTOCIN 30 UNITS/LR 500 ML IV PRN ×2 (13:00→21:00)
[2016-12-24] MEDS ORDERED: OXYTOCIN 30 UNITS/LR 500 ML IV SCH (13:00)
[2016-12-24 13:10] LABS: ADD SCAN DIFF NO
[2016-12-24 13:25] LABS: BASOPHILS % 0.2 % (0.0-2.0); EOSINOPHILS # 0.1 10^3/ul (0.0-0.5); EOSINOPHILS % 1.2 % (0.0-7.0); HEMOGLOBIN 10.1 g/dl (12.0-16.0); LYMPHOCYTES # 1.1 10^3/ul (0.8-2.9); LYMPHOCYTES % 12.3 % (15.0-51.0); MEAN CORPUSCULAR HEMOGLOBIN 26.9 pg (29.0-33.0); MEAN CORPUSCULAR HGB CONC 32.6 g/dl (32.0-37.0); MEAN CORPUSCULAR VOLUME 82.4 fl (82.0-101.0); MEAN PLATELET VOLUME 11.1 fl (7.4-10.4); MONOCYTE # 0.8 10^3/ul (0.3-0.9); MONOCYTES % 8.6 % (0.0-11.0); NEUTROPHIL # 6.7 10^3/ul (1.6-7.5); NEUTROPHILS % 77.1 % (39.0-77.0); PLATELET COUNT 262 10^3/UL (140-415); RED BLOOD COUNT 3.76 10^6/ul (4.20-5.40); RED CELL DISTRIBUTION WIDTH 14.6 % (11.5-14.5); WHITE BLOOD COUNT 8.7 10^3/ul (4.8-10.8)
[2016-12-24 13:29] LABS: INR 0.91; PROTIME 12.2 Sec (12.2-14.2)
[2016-12-24 13:30] LABS: PARTIAL THROMBOPLASTIN TIME 30.9 Sec (25.0-35.0)
[2016-12-24] MEDS ORDERED: LACTATED RINGER'S 1,000 ML IV ONE (13:51)
[2016-12-24] MEDS ORDERED: CITRIC ACID/NA CITRATE 30 ML CUP PO ONE (14:00)
[2016-12-24] MEDS ORDERED: ONDANSETRON 4 MG INJ IV ONE (14:00)
[2016-12-24] MEDS ORDERED: PRENAT PO (14:45)
[2016-12-24] MEDS ORDERED: CITRIC ACID/SODIUM CITRATE 15 ML CUP PO ONE (15:30)
[2016-12-24] MEDS ORDERED: FENTAnyl 50 MCG/ML VIAL ONE (15:53)
[2016-12-24] MEDS ORDERED: morphine SULFATE/PF (10 MG/10 ML) INJ ONE (15:53)
[2016-12-24] MEDS: CEFAZOLIN 2 GM/50 ML (PMX) 50 ML IV SCH ×2 (16:21→17:15)
[2016-12-24] MEDS ORDERED: METOCLOPRAMIDE 10 MG INJ ONE (16:25)
[2016-12-24] MEDS ORDERED: EPHEDrine SULFATE 50 MG/5 ML SYG ONE (16:30)
[2016-12-24] MEDS ORDERED: DIPHENHYDRAMINE 50 MG INJ IV PRN (17:00)
[2016-12-24] MEDS ORDERED: NALOXONE (0.4 MG/ML) INJ IV PRN (17:00)
[2016-12-24] MEDS ORDERED: PROCHLORPERAZINE 10 MG INJ IV PRN (17:00)
[2016-12-24] MEDS ORDERED: ONDANSETRON 4 MG INJ IV PRN (17:00)
[2016-12-24] MEDS ORDERED: HYDROmorphONE 1 MG/ML SYG IV PRN ×2 (17:00)
[2016-12-24] MEDS ORDERED: MEPERIDINE 100 MG INJ ONE (17:01)
--- NOTE | 2016-12-24 17:51 | OPR ---
DATE OF OPERATION: 12/24/2016 PREOPERATIVE DIAGNOSES: 1. Intrauterine at 37 weeks and 6 days. 2. History of 3 previous sections. 3. Request for bilateral tubal ligation in active labor. POSTOPERATIVE DIAGNOSES 1. Intrauterine at 37 weeks and 6 days. 2. History of 3 previous sections. 3. Request for bilateral tubal ligation in active labor. PROCEDURE: Repeat transverse low cervical section, bilateral tubal ligation. SURGEON: Anthony Sarabia MD LAB ANIMAL TECHNOLOGIST: ANTWAN GALLAGHER MD. ANESTHESIA: Spinal. ANESTHESIOLOGIST: Dr. Carreno. FINDINGS: Live baby boy with the 8 and 9. DETAILS OF THE PROCEDURE: Under satisfactory spinal anesthesia, the patient was prepped and draped and placed in supine position, tilted to the left. Pfannenstiel incision was made, incision carried through the subcutaneous tissue. Fascia incised to the length of the incision. Rectus muscle divi ded in midline. Peritoneum exposed, entered through a transverse incision. Exploration of abdomen: Gravid uterus, normal appearing tubes and ovaries, extremely thinned out lower segment of the uter us to the thickness of 1 mm. Bladder flap gently was developed. Transverse incision was made in th e lower segment of the uterus. Amniotic sac ruptured. Clear amniotic fluid noted. Live baby boy w as delivered from unengaged vertex. Nasal oropharyngeal suction was performed. Baby handed to the team for immediate attention. Patient received 20 units of Pitocin. Placenta delivered ma nually intact. Uterine cavity cleaned with wet sponge and drainage established. Uterus closed in 2 layers using Monocryl #1 in continuous fashion. Bilateral tubal ligation performed by identifying the ampullar section of the right fallopian tube grasped by a Lamar. A loop was made. Suture mat erial used #0 plain catgut was reinforced with the same suture material. The top of the loop 3/4 of inch was excised. The cut end of the tube was cauterized and the specimen submitted to pathology. The same procedure performed for the opposite side. Peritoneal cavity irrigated with warm saline. Sponge, needle and instrument reported to be correct. Abdominal peritoneum closed with 2-0 chromic catgut continuously. Rectus muscle approximated with few interrupted 2-0 chromic catgut. Fascia c losed with #1 PDS in a continuous fashion. Subcutaneous tissue approximated with interrupted 2-0 ch romic catgut. Skin closed with sandee. ESTIMATED BLOOD LOSS: 600 mL. URINE BAG: Contained 200 mL of clear urine. Patient tolerated procedure well, transferred to recovery room in a good condition. Dictated By: ANTHONY CHIN/EILEEN Conf#: [id number] DID#: [id number]
--- NOTE | 2016-12-24 17:56 | HP ---
Date/Time of Note Date/Time of Note DATE: 12/24/16 TIME: 17:39 OB - History Hx of Present Free Text/Dictation 31 years old female 6 para 5 history of 3 previous section admitted at 37 weeks and 6 days in labor with request for bilateral tubal ligation at the time of her section this patient has been under the care of [facility] [facility] her course was not complicated by gestational diabetes -induced hypertension [place] [facility] history [place] at this 12 history of total of 6 including the present 3 previous section 1 labor and 4 term Surgical history hernia repair May 2006 Allergies denies allergy to any known medication Social habits denies a smoking or drinking Family history not remarkable Review of system within normal Physical examination 5 feet 4 192 pounds total of 27 pounds weight gain during the Head ears nose and throat negative Neck supple no thyromegaly Lungs clear to P&A Heart normal sinus rhythm no murmur Abdomen fundal height 37 cm from from symphysis pubis heart rate category 1 Allergic examination deferred Extremities no edema no varicosities Impression intrauterine at 37 weeks and 6 days after of 3 previous section request for bilateral tubal ligation in active labor Plan repeat bilateral tubal ligation Complication of the surgery including bowel bladder injury infection hemorrhage and wound hematoma has been discussed with the patient and she would like to proceed with a and tubal ligation Estimated Due Date: Jan 08, 2017 : 6 Para: 5 Care: Good Care Obstetrical Complications: None Medical Complications: None Past Family/Social History * Past Medical, Surgical, Family and Obstetric Histories reviewed from chart. Rubella: immune RPR/VDRL: Negative GBS Status: Negative HBsAG: Negative OB Admission Exam Vital Signs Vital Signs Vital Signs Date Time Temp Pulse Resp B/P Pulse Ox O2 Delivery O2 Flow Rate FiO2 12/24/16 14:30 97.8 80 20 116/64 Room Air Last 72 hours Lab Results CBC & BMP 12/24/16 09:03 OB Assessment/Plan Reason for admission: other (37 weeks and 6 days history of 3 previous section request for bilateral tubal ligation in labor) ANTHONY ZARATE MD December 24, 2016 17:51
[2016-12-24] MEDS: KETOROLAC 30 MG INJ IV PRN (18:55)
[2016-12-24] MEDS ORDERED: CEFAZOLIN 1 GM/50 ML (PMX) 50 ML IVPB SCH (21:00)
[2016-12-24] MEDS ORDERED: LANOLIN 7 GM TUBE TOP PRN (21:00)
[2016-12-24] MEDS ORDERED: OXYCODONE/ACETAMINOPHEN (5/325) TAB PO PRN (21:00)
[2016-12-24] MEDS: SENNA/DOCUSATE NA (8.6MG/50MG) TAB PO SCH (21:00)
[2016-12-24] MEDS ORDERED: ACETAMINOPHEN/CODEINE #3 TAB PO PRN ×2 (21:00)
[2016-12-24] MEDS: OXYTOCIN 30 UNITS/LR 500 ML IV SCH (22:30)
[2016-12-25] MEDS: OXYTOCIN 30 UNITS/LR 500 ML IV SCH ×2 (03:02→04:51)
[2016-12-25 04:08] VITALS: BP 105/56; PULSE 65; RESP 18
[2016-12-25] MEDS: LACTATED RINGER'S 1,000 ML IV SCH ×2 (06:51→15:00)
[2016-12-25 07:31] LABS: ADD SCAN DIFF NO
[2016-12-25 07:42] LABS: BASOPHILS % 0.2 % (0.0-2.0); EOSINOPHILS % 0.3 % (0.0-7.0); LYMPHOCYTES % 9.7 % (15.0-51.0); MEAN CORPUSCULAR HEMOGLOBIN 27.3 pg (29.0-33.0); MEAN CORPUSCULAR HGB CONC 33.3 g/dl (32.0-37.0); MEAN PLATELET VOLUME 10.7 fl (7.4-10.4); MONOCYTE # 0.9 10^3/ul (0.3-0.9); MONOCYTES % 8.6 % (0.0-11.0); NEUTROPHIL # 8.5 10^3/ul (1.6-7.5); NEUTROPHILS % 80.7 % (39.0-77.0); PLATELET COUNT 247 10^3/UL (140-415); RED BLOOD COUNT 3.66 10^6/ul (4.20-5.40); RED CELL DISTRIBUTION WIDTH 14.5 % (11.5-14.5); WHITE BLOOD COUNT 10.6 10^3/ul (4.8-10.8)
[2016-12-25 08:00] VITALS: BP 85/74; RESP 17
[2016-12-25] MEDS: KETOROLAC 30 MG INJ IV PRN (08:17)
[2016-12-25] MEDS: SENNA/DOCUSATE NA (8.6MG/50MG) TAB PO SCH ×2 (08:18→20:43)
[2016-12-25 15:45] VITALS: BP 122/67; RESP 17
--- NOTE | 2016-12-25 16:53 | PN ---
Date/Time of Note Date/Time of Note DATE: 12/25/16 TIME: 16:52 OB Subjective Subjective Subjective Post day 1 Afebrile vital signs stable abdomen soft bowel sounds present lochia moderate extremity normal recommended to discontinue IV ambulation encouraged Laboratory Tests Test 12/25/16 07:12 White Blood Count 10.610^3/ul Red Blood Count 3.6610^6/ul Hemoglobin 10.0g/dl Hematocrit 30.0% Mean Corpuscular Volume 82.0fl Mean Corpuscular Hemoglobin 27.3pg Mean Corpuscular Hemoglobin Concent 33.3g/dl Red Cell Distribution Width 14.5% Platelet Count 31619^3/UL Mean Platelet Volume 10.7fl Neutrophils % 80.7% Lymphocytes % 9.7% Monocytes % 8.6% Eosinophils % 0.3% Basophils % 0.2% Nucleated Red Blood Cells % 0.0/100WBC Neutrophils # 8.510^3/ul Lymphocytes # 1.010^3/ul Monocytes # 0.910^3/ul Eosinophils # 0.010^3/ul Basophils # 0.010^3/ul Nucleated Red Blood Cells # 0.010^3/ul Current Medications Medications (Trade) Dose Ordered Sig/Amanda Route PRN Reason Start Time Stop Time Status Last Admin Dose Admin Lactated Ringer's 1,000 ml @ 125 mls/hr Q8H IV 12/24/16 09:00 12/24/16 21:03 DC 12/24/16 12:12 Ampicillin 100 ml @ 100 mls/hr ONCE STAT IV 12/24/16 12:45 12/24/16 13:44 DC 12/24/16 13:40 Cefazolin Sodium/ Dextrose 50 ml @ 100 mls/hr ONCE IV 12/24/16 13:00 12/24/16 21:03 DC 12/24/16 16:21 Oxytocin/Lactated Ringer's 500 ml @ 125 mls/hr ONCE IV 12/24/16 13:00 12/24/16 21:03 DC 12/24/16 18:41 Oxytocin/Lactated Ringer's 500 ml @ 0 mls/hr ONCE PRN IV For Hemorrhage Management 12/24/16 13:00 12/24/16 21:04 DC Methylergonovine Maleate (Methergine) 0.2 mg ONCE PRN IM VAGINAL BLEEDING 12/24/16 13:00 12/24/16 21:04 DC Carboprost Tromethamine (Hemabate) 250 mcg ONCE PRN IM VAGINAL BLEEDING 12/24/16 13:00 12/24/16 21:04 DC Misoprostol 1000 mcg 1,000 mcg ONCE PRN IL VAGINAL BLEEDING 12/24/16 13:00 12/24/16 21:04 DC Lactated Ringer's (Lr) 1,000 ml @ 1,000 mls/hr Q1H ONCE IV 12/24/16 13:51 12/24/16 14:50 DC 12/24/16 15:19 Ondansetron HCl (Zofran Inj) 4 mg pre-procedure ONCE IV 12/24/16 14:00 12/24/16 14:01 DC Citric Acid/ Sodium Citrate (Bicitra) 30 ml pre-procedure ONCE PO 12/24/16 14:00 12/24/16 14:01 DC Citric Acid/ Sodium Citrate (Bicitra) 30 ml pre-procedure ONCE PO 12/24/16 15:30 12/24/16 15:31 DC 12/24/16 15:51 Morphine Sulfate (Duramorph) 10 mg STK-MED ONCE .ROUTE 12/24/16 15:53 12/24/16 15:54 DC Fentanyl (Sublimaze) 100 mcg STK-MED ONCE .ROUTE 12/24/16 15:53 12/24/16 15:54 DC Metoclopramide HCl (Reglan) 10 mg STK-MED ONCE .ROUTE 12/24/16 16:25 12/24/16 16:26 DC Ephedrine Sulfate 50 mg STK-MED ONCE .ROUTE 12/24/16 16:30 12/24/16 16:31 DC Naloxone HCl (Narcan) 0.1 mg Q2M PRN IV FOR RESP RATE 8 OR LESS 12/24/16 17:00 12/25/16 16:59 Ketorolac Tromethamine (Toradol) 30 mg Q6H PRN IV PAIN 12/24/16 17:00 12/25/16 16:59 12/25/16 08:17 Hydromorphone HCl (Dilaudid) 0.2 mg Q3H PRN IV PAIN LEVEL 1-5 12/24/16 17:00 12/25/16 16:59 Hydromorphone HCl (Dilaudid) 0.4 mg Q3H PRN IV PAIN LEVEL 6-10 12/24/16 17:00 12/25/16 16:59 12/24/16 19:43 Diphenhydramine HCl (Benadryl) 25 mg Q6H PRN IV ITCHING 12/24/16 17:00 12/25/16 16:59 Ondansetron HCl (Zofran Inj) 4 mg Q6H PRN IV NAUSEA AND/OR VOMITING 12/24/16 17:00 12/25/16 16:59 Prochlorperazine (Compazine Inj) 10 mg ONCE PRN IV NAUSEA AND/OR VOMITING 12/24/16 17:00 12/25/16 16:59 Miscellaneous Information (* Miscellaneous Pharmacy Order) Duramorph: 0.2 mg Spi... GIVEN XX 12/24/16 17:00 12/24/16 21:04 DC Meperidine HCl (Demerol) 100 mg STK-MED ONCE .ROUTE 12/24/16 17:01 12/24/16 17:02 DC Acetaminophen/ Codeine Phosphate (Tylenol No.3) 1 tab Q4H PRN PO PAIN LEVEL 4-6 12/24/16 21:00 Acetaminophen/ Codeine Phosphate (Tylenol No.3) 2 tab Q4H PRN PO PAIN LEVEL 7-10 12/24/16 21:00 Oxycodone/ Acetaminophen (Percocet (5/ 325)) 1 tab Q4H PRN PO PAIN LEVEL 4-6 12/24/16 21:00 Oxycodone/ Acetaminophen (Percocet (5/ 325)) 2 tab Q4H PRN PO PAIN LEVEL 7-10 12/24/16 21:00 Ibuprofen (Motrin) 600 mg Q6 PO 12/25/16 18:00 Simethicone (Mylicon) 160 mg Q8H PRN PO DISTENSION/GAS/BLOATING 12/24/16 21:00 Senna/Docusate Sodium (Senokot-S) 1 tab BID PO 12/24/16 21:00 12/25/16 08:18 Lanolin (Mxo-Z-Yamosz) 1 applic BEDSIDE MEDICATION PRN TOP BEDSIDE FOR NISH TO NIPPLES 12/24/16 21:00 Diphtheria/ Tetanus/Acell Pertussis 0.5 ml 0.5 ml ONCE ONCE IM* 12/27/16 09:00 12/27/16 09:01 Oxytocin/Lactated Ringer's 500 ml @ 0 mls/hr ONCE PRN IV For Hemorrhage Management 12/24/16 21:00 Methylergonovine Maleate (Methergine) 0.2 mg ONCE PRN IM VAGINAL BLEEDING 12/24/16 21:00 Carboprost Tromethamine (Hemabate) 250 mcg ONCE PRN IM VAGINAL BLEEDING 12/24/16 21:00 Misoprostol 1000 mcg 1,000 mcg ONCE PRN IL VAGINAL BLEEDING 12/24/16 21:00 Cefazolin Sodium 50 ml @ 100 mls/hr ONCE IVPB 12/24/16 21:00 12/24/16 21:29 DC 12/25/16 01:00 Oxytocin/Lactated Ringer's 500 ml @ 125 mls/hr Q4H IV 12/24/16 20:51 12/25/16 07:00 DC 12/25/16 03:02 Lactated Ringer's (Lr) 1,000 ml @ 125 mls/hr Q8H IV 12/25/16 07:00 12/25/16 17:00 12/25/16 06:51 ANTHONY ZARATE MD December 25, 2016 16:53
[2016-12-25] MEDS: OXYCODONE/ACETAMINOPHEN (5/325) TAB PO PRN ×2 (17:14→22:43)
[2016-12-25] MEDS: IBUPROFEN 600 MG TAB PO SCH ×2 (17:47→23:31)
[2016-12-25 19:30] VITALS: BP 108/63; PULSE 70; RESP 18
[2016-12-26 03:57] VITALS: BP 109/57; PULSE 57; RESP 18
[2016-12-26] MEDS: IBUPROFEN 600 MG TAB PO SCH ×3 (05:38→17:16)
[2016-12-26] MEDS: OXYCODONE/ACETAMINOPHEN (5/325) TAB PO PRN ×2 (06:07→15:50)
[2016-12-26 08:30] VITALS: BP 85/49; PULSE 55; RESP 18
[2016-12-26] MEDS: SENNA/DOCUSATE NA (8.6MG/50MG) TAB PO SCH ×2 (09:00→20:42)
[2016-12-26 16:00] VITALS: BP 117/69; PULSE 64; RESP 18
[2016-12-26] MEDS ORDERED: NA PHOSPHATE/BIPHOS 133 ML ENEMA PR ONE (17:00)
--- NOTE | 2016-12-26 17:06 | PN ---
Date/Time of Note Date/Time of Note DATE: 12/26/16 TIME: 17:03 OB Subjective Subjective Subjective Afebrile vital signs stable, she seems comfortable with oral pain medication abdomen soft, incision dry, , bowel sounds present, no bowel movement uterus firm lochia moderate extremity normal ANTHONY ZARATE MD Dec 26, 2016 17:06
[2016-12-26 20:00] VITALS: BP 125/76; PULSE 60; RESP 18
[2016-12-27] MEDS: OXYCODONE/ACETAMINOPHEN (5/325) TAB PO PRN ×2 (00:02→05:07)
[2016-12-27 04:00] VITALS: BP 109/59; PULSE 63; RESP 18
[2016-12-27] MEDS: IBUPROFEN 600 MG TAB PO SCH ×3 (06:00→07:46)
[2016-12-27 07:30] VITALS: BP 107/71; PULSE 57; RESP 16
[2016-12-27] MEDS: SENNA/DOCUSATE NA (8.6MG/50MG) TAB PO SCH (08:47)
[2016-12-27] MEDS ORDERED: DIPHTH/TET/ACEL PERTUSS (ADULT) 0.5 ML VIAL IM* ONE (09:00)
--- NOTE | 2016-12-27 09:09 | PD.PPDC ---
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
--- NOTE | 2016-12-27 09:14 | DS ---
Date/Time of Note Date/Time of Note DATE: 12/27/16 TIME: 09:10 Discharge Summary Admission/Discharge Info Admit Date/Time December 24, 2016 at 12:54 Discharge Date/Time December 27, 2016 at 0907 Final Diagnosis Post repeat bilateral tubal ligation day 3 Procedures Repeat bilateral tubal ligation Hx of Present Illness Term with a history of previous request for bilateral tubal ligation Hospital Course Satisfactory uneventful Home Meds Reported Medications Multivit/Min/Fol Ac/Iron/Pren* ( S*) 1 Tab Tab, 1 TAB PO DAILY, TAB 12/24/16 Follow-up Plan Post home instructions given recommended patient to make appointment to be seen at the clinic in 4 days to discontinue sandee. Primary Care Provider Basil Ascencio Time spent on discharge: < 30 minutes ANTHONY ZARATE MD Dec 27, 2016 09:14
== END 2016-12-27 11:05 | disposition home or self-care (01) | DRG 766 ==
LOC: OBT 07:38 → L-D 07:39 → OBT 12:52 → L-D 12:54 → PP1 20:49
PROVIDERS: ADMIT Obstetrics & Gynecology; ATTEND Obstetrics & Gynecology
PROC: 0UL70ZZ Occlusion of Bilateral Fallopian Tubes, Open Approach (ICD-10-PCS; 2016-12-24)
PROC: 10D00Z1 Extraction of Products of Conception, Low, Open Approach (ICD-10-PCS; principal; 2016-12-24 16:00)
PROC: 3E00X4Z Introduction of Serum, Toxoid and Vaccine into Skin and Mucous Membranes, External Approach (ICD-10-PCS; 2016-12-27)
DX: O34.211 Maternal care for low transverse scar from previous cesarean delivery (principal); E66.9 Obesity, unspecified; Z30.2 Encounter for sterilization; Z3A.37 37 weeks gestation of pregnancy; O99.213 Obesity complicating pregnancy, third trimester; Z68.33 Body mass index [BMI] 33.0-33.9, adult; Z37.0 Single live birth; Z23 Encounter for immunization
CPT/HCPCS: 85025; 85610; 85730; 86592; 86850; 86900; 86901; 87340; 88302; 90715; 94760; 96360; 96361; 99464; G0463; J0290; J0690; J1170; J1885; J2175; J2274; J2405; J2590; J2765; J3010; J7120

== ENCOUNTER 2016-12-29 19:29 | Emergency (ER) | payer OTHER ==
[~2016-12-29] VITALS: Ht 162.6 cm; Wt 84.5 kg
[2016-12-29 19:41] VITALS: Ht 162.6 cm; Wt 84.5 kg
[2016-12-29 20:55] LABS: ADD SCAN DIFF NO
[2016-12-29 20:59] LABS: BASOPHILS % 0.4 % (0.0-2.0); EOSINOPHILS # 0.3 10^3/ul (0.0-0.5); EOSINOPHILS % 3.9 % (0.0-7.0); HEMATOCRIT 30.3 % (37.0-47.0); HEMOGLOBIN 9.8 g/dl (12.0-16.0); LYMPHOCYTES # 1.5 10^3/ul (0.8-2.9); LYMPHOCYTES % 18.9 % (15.0-51.0); MEAN CORPUSCULAR HEMOGLOBIN 26.8 pg (29.0-33.0); MEAN CORPUSCULAR HGB CONC 32.3 g/dl (32.0-37.0); MEAN CORPUSCULAR VOLUME 82.8 fl (82.0-101.0); MEAN PLATELET VOLUME 10.5 fl (7.4-10.4); MONOCYTE # 0.6 10^3/ul (0.3-0.9); MONOCYTES % 7.7 % (0.0-11.0); NEUTROPHIL # 5.5 10^3/ul (1.6-7.5); NEUTROPHILS % 68.7 % (39.0-77.0); PLATELET COUNT 338 10^3/UL (140-415); RED BLOOD COUNT 3.66 10^6/ul (4.20-5.40); RED CELL DISTRIBUTION WIDTH 15.2 % (11.5-14.5)
--- NOTE | 2016-12-29 21:15 | RADRPT ---
PROCEDURE: US Lower extremity Venous. CLINICAL INDICATION: leg swelling post day 5/ s/p bedrest TECHNIQUE: Multiple sonographic images of the bilateral lower extremity deep venous system was obt ained utilizing grayscale, color-flow, compressive sonography and doppler imaging with augmentation. The images were reviewed on a PACS workstation. COMPARISON: None. FINDINGS: There is normal compressibility and flow within the bilateral common femoral, deep femoral, superfic ial femoral and popliteal veins. The deep veins the calf were incompletely visualized. IMPRESSION: No sonographic evidence for deep venous thrombosis in the bilateral lower extremities. Physician Shanell Date Time Electronically viewed and signed by Physician Shanell on 12/29/2016 21:15 ML/
[2016-12-29 21:26] LABS: CALCIUM 8.8 mg/dl (8.4-10.2); CREATININE 0.69 mg/dl (0.44-1.00); POTASSIUM 4.1 mmol/L (3.5-5.1)
--- NOTE | 2016-12-29 22:20 | ERD ---
ER Documentation Chief Complaint Date/Time DATE: 12/29/16 TIME: 22:19 Chief Complaint ON FRIDAY, RELEASED FRIDAY, BILATERAL LEG SWELLING TODAY HPI This pleasant 31-year-old female presents to emergency department today for bilateral lower extremity edema. Patient is day 5, states that she was on strict bedrest 4 weeks before delivery. Patient states section at 37 weeks with tubal ligation. Patient reports she did have limb swelling during but states current symptoms "seem" worse. Patient reports foot pain with tingling sensation bilaterally, history of renal insufficiency, no history of coronary artery disease or CHF. Patient denies shortness of breath, or chest pain. Patient is breast-feeding, history of anemia states she was prescribed iron but is not taking it because of nausea. ROS All systems reviewed and are negative except as per history of present illness. Medications Home Meds Reported Medications Multivit/Min/Fol Ac/Iron/Pren* ( S*) 1 Tab Tab, 1 TAB PO DAILY, TAB 12/24/16 Allergies Allergies: Coded Allergies: No Known Drug Allergy (Verified Allergy, Unknown, 01/02/15) PMhx/Soc History of Surgery: Yes ( X 4, Tubal ligation) Anesthesia Reaction: No Hx Neurological Disorder: No Hx Respiratory Disorders: No Hx Cardiac Disorders: No Hx Psychiatric Problems: No Hx Miscellaneous Medical Probl: No Hx Alcohol Use: No Hx Substance Use: No Hx Tobacco Use: No Smoking Status: Never smoker Physical Exam Vitals Vital Signs Date Time Temp Pulse Resp B/P Pulse Ox O2 Delivery O2 Flow Rate FiO2 12/29/16 19:41 97.4 50 16 149/68 98 Vitals stable, triage notes reviewed Physical Exam Const: Well-appearing, no acute Head: Atraumatic Eyes: Normal Conjunctiva, PERRLA, EOMI ENT: Normal External Ears, Nose and Mouth. Neck: Resp: Chest rise and fall symmetrically, clear to auscultation bilaterally, no rales wheezes or rhonchi, no egophony or respiratory Cardio: Regular rate and rhythm, no murmurs, S1-S2, no S3-S4 Abd: Skin: Back: Ext: Bilateral lower extremities present with +1 pitting edema, equivocal Homans sign, peripheral pulses +2 DP/PT, capillary refill brisk less than 2 seconds Neur: Awake and alert Psych: Normal Mood and Affect Result Diagram: 12/29/16204412/29/162044 Results 24 hrs Laboratory Tests Test 12/29/16 20:15 12/29/16 20:45 B-Type Natriuretic Peptide 506PG/ML White Blood Count 8.010^3/ul Red Blood Count 3.6610^6/ul Hemoglobin 9.8g/dl Hematocrit 30.3% Mean Corpuscular Volume 82.8fl Mean Corpuscular Hemoglobin 26.8pg Mean Corpuscular Hemoglobin Concent 32.3g/dl Red Cell Distribution Width 15.2% Platelet Count 17452^3/UL Mean Platelet Volume 10.5fl Neutrophils % 68.7% Lymphocytes % 18.9% Monocytes % 7.7% Eosinophils % 3.9% Basophils % 0.4% Nucleated Red Blood Cells % 0.0/100WBC Neutrophils # 5.510^3/ul Lymphocytes # 1.510^3/ul Monocytes # 0.610^3/ul Eosinophils # 0.310^3/ul Basophils # 0.010^3/ul Nucleated Red Blood Cells # 0.010^3/ul Sodium Level 141mmol/L Potassium Level 4.1mmol/L Chloride Level 110mmol/L Carbon Dioxide Level 24mmol/L Anion Gap 11 Blood Urea Nitrogen 14mg/dl Creatinine 0.69mg/dl Glucose Level 77mg/dl Calcium Level 8.8mg/dl Interpretation text CBC shows no evidence of infection, anemia noted Chemistry shows no evidence of significant electrolyte abnormalities or renal insufficiency Liver function tests shows no evidence of acute biliary or hepatic dysfunction BNP elevated 506 Procedures/MDM PROCEDURE: US Lower extremity Venous. CLINICAL INDICATION: leg swelling post day 5/ s/p bedrest TECHNIQUE: Multiple sonographic images of the bilateral lower extremity deep venous system was obtained utilizing grayscale, color-flow, compressive sonography and doppler imaging with augmentation. The images were reviewed on a PACS workstation. COMPARISON: None. FINDINGS: There is normal compressibility and flow within the bilateral common femoral, deep femoral, superficial femoral and popliteal veins. The deep veins the calf were incompletely visualized. IMPRESSION: No sonographic evidence for deep venous thrombosis in the bilateral lower extremities. Electronically viewed and signed by Berry Trujillo, Physician on 12/29/2016 21 :15 This pleasant 31-year-old female presents to emergency department for lower leg edema and bilateral foot pain with tingling with walking. Patient is day 5. Reports 4 weeks. Rest prior to delivery. Status post section and tubal ligation. Patient has no pre-existing past medical conditions, no history of hypertension, coronary artery disease, renal disease, or valvular disease. Trace nonpitting edema with equivocal Homans sign. DVT, pulmonary embolism, is not suspected. Patient has no shortness of breath or fatigue. CHF is not suspected. No neck vein distention, rales, S3 gallop. No tachycardia, pleural effusion, dyspnea on exertion, or cough. No peripartum cardiomyopathy reported. Case discussed with supervising physician BMP added to existing labs, patient is anxious to leave the emergency department and is discharged home with strict return to emergency department criteria, return for shortness of breath, chest pain, coughing at night, fatigue. Patient gives a nurse practitioner her cell phone area code [phone]. Patient will be called once results are available. I feel the patient is stable for discharge at this time. I have discussed results, examination findings, the treatment plan with the patient and family present prior to discharge. Indications for emergent reevaluation, side effects of medication were also discussed. All questions were answered. Patient verbalizes understanding and agrees with plan of care. Late entry: Nurse practitioner called patient on cell phone [phone] 01/02/2017. Patient reports improvement in lower extremity edema, improvement with tingling to feet when ambulating, no symptoms of fatigue, chest pain, shortness of breath or night coughing reported. Patient was informed BNP abnormal elevated and to follow-up with primary physician for repeat laboratory testing. Patient states she has a appointment coming in the next 2 weeks and will notify a physician. Departure Diagnosis: Primary Impression: edema Condition: Fair Patient Instructions: Peripheral Edema, Bilateral ALBERTO,CHAIM Dec 29, 2016 22:20
== END 2016-12-29 22:58 | disposition home or self-care (01) ==
LOC: FTE 19:29
DX: O12.05 Gestational edema, complicating the puerperium (principal)
CPT/HCPCS: 36415; 80048; 83880; 85025; 93970; Z7502

== ENCOUNTER 2017-01-07 11:22 | Emergency (ER) | payer OTHER ==
[~2017-01-07] VITALS: Ht 157.5 cm; Wt 89.0 kg
[2017-01-07 11:23] VITALS: Ht 157.5 cm; Wt 89.0 kg
[2017-01-07] MEDS ORDERED: CEPH-443 PO (12:32)
--- NOTE | 2017-01-07 12:35 | ERD ---
ER Documentation Chief Complaint Date/Time DATE: 01/07/17 TIME: 12:33 Chief Complaint CHECK UP HPI This 31-year-old female presents for recheck of her wound which was performed 2 weeks ago. She has noticed some discharge from the right side the wound with some opening. She denies fevers, vomiting, or pain. Her OB is Dr. Sarabia her last visit was approximately 6 days ago where sandee were removed and Steri-Strips were placed. ROS All systems reviewed and are negative except as per history of present illness. Medications Home Meds Active Scripts Cephalexin* (Keflex*) 500 Mg Capsule, 500 MG PO QID for 7 Days, CAP Prov:MARKUS FARLEY MD 01/07/17 Reported Medications Multivit/Min/Fol Ac/Iron/Pren* ( S*) 1 Tab Tab, 1 TAB PO DAILY, TAB 12/24/16 Allergies Allergies: Coded Allergies: No Known Drug Allergy (Verified Allergy, Unknown, 01/02/15) PMhx/Soc History of Surgery: Yes ( X 4, Tubal ligation) Anesthesia Reaction: No Hx Neurological Disorder: No Hx Respiratory Disorders: No Hx Cardiac Disorders: No Hx Psychiatric Problems: No Hx Miscellaneous Medical Probl: No Hx Alcohol Use: No Hx Substance Use: No Hx Tobacco Use: No Smoking Status: Never smoker Physical Exam Vitals Vital Signs Date Time Temp Pulse Resp B/P Pulse Ox O2 Delivery O2 Flow Rate FiO2 01/07/17 11:23 98.1 60 18 127/76 99 Physical Exam Const: [] Alert, [id number]. Head: Atraumatic Eyes: Normal Conjunctiva ENT: Normal External Ears, Nose and Mouth. Neck: Full range of motion..~ No meningismus. Resp: Clear to auscultation bilaterally Cardio: Regular rate and rhythm, no murmurs Abd: Soft, non tender, non distended. Normal bowel sounds. There is a healing wound with a slight dehiscence of 2-3 cm without erythema, discharge. Skin: No petechiae or rashes Back: No midline or flank tenderness Ext: No cyanosis, or edema Neur: Awake and alert Psych: Normal Mood and Affect Procedures/MDM This patient has signs and symptoms of a small superficial postoperative seroma which was drained. Steri-Strips were applied for comfort and to prevent further opening of the edges. There is no evidence of active infection. She was given Keflex prophylactically, and instructions for wound care. Patient is advised to recheck for redness, fevers, purulent discharge from new worsening symptoms or primary care doctor or OB. Departure Diagnosis: Primary Impression: Seroma Additional Impression: Encounter for wound re-check Condition: Stable Patient Instructions: Seroma, Postsurgical Additional Instructions: Recheck for worsening redness, swelling, fevers. See OB for follow-up. MARKUS FARLEY MD Jan 07, 2017 12:35
== END 2017-01-07 16:32 | disposition home or self-care (01) ==
LOC: FTE 11:22
DX: N99.843 Postprocedural seroma of a genitourinary system organ or structure following other procedure (principal)
CPT/HCPCS: 99283

== ENCOUNTER 2017-01-25 08:00 | Emergency (ER) | payer OTHER ==
[~2017-01-25] VITALS: Ht 162.6 cm; Wt 78.4 kg
[~2017-01-25 08:00] MED LIST changes: +CEPH-443 PO
[2017-01-25 08:02] VITALS: Ht 162.6 cm; Wt 78.4 kg
[2017-01-25] MEDS ORDERED: CEPH-443 PO (08:16)
--- NOTE | 2017-01-25 08:21 | ERD ---
ER Documentation Chief Complaint Date/Time DATE: 01/25/17 TIME: 08:17 Chief Complaint fever x2 day; cough, breast-tender to touch; had CS on December 24, 2016 HPI 31-year-old female is here for fever for 2 days as well as cough. She is also 1 month status post and is currently breast-feeding and she has also noticed that she has had some tenderness and induration over her left lateral breast she has been taking Tylenol and Motrin. She denies any blood or drainage from her breast. Denies any nausea vomiting or diarrhea. ROS All systems reviewed and are negative except as per history of present illness. Medications Home Meds Active Scripts Cephalexin* (Keflex*) 500 Mg Capsule, 500 MG PO QID for 7 Days, CAP Prov:JOSH SCHULTZ PA-C 01/25/17 Cephalexin* (Keflex*) 500 Mg Capsule, 500 MG PO QID for 7 Days, CAP Prov:MARKUS FARLEY MD 01/07/17 Reported Medications Multivit/Min/Fol Ac/Iron/Pren* ( S*) 1 Tab Tab, 1 TAB PO DAILY, TAB 12/24/16 Allergies Allergies: Coded Allergies: No Known Drug Allergy (Verified Allergy, Unknown, 01/25/17) PMhx/Soc History of Surgery: Yes ( X 4, Tubal ligation) Anesthesia Reaction: No Hx Neurological Disorder: No Hx Respiratory Disorders: No Hx Cardiac Disorders: No Hx Psychiatric Problems: No Hx Miscellaneous Medical Probl: No Hx Alcohol Use: No Hx Substance Use: No Hx Tobacco Use: No Physical Exam Vitals Vital Signs Date Time Temp Pulse Resp B/P Pulse Ox O2 Delivery O2 Flow Rate FiO2 01/25/17 08:02 98.4 95 19 133/60 95 Physical Exam General: well developed, well nourished, alert, nontoxic, no distress Head: normocephalic, atraumatic, Neck: Supple, nontender, no lymphadenopathy, no midline tenderness Respiratory: Clear to auscaultation bilaterally, speaks in full sentences, no use of accesory muscles or labored breathing, no rales, ronchi, or wheezing Cardiovascular: RRR, No murmurs GI: soft, non tender, non distended, negative murphys sign, negative mcburneys point tenderness, no cva tenderness bilaterally, no rebound or guarding Back: no midline tenderness, no step offs or bony abnormalities, sensation to light touch in tact Extremities: moving all extremities normally, normal gait, no edema Skin: Breast exam performed with female RN grey iron molder Eliza, left lateral breast has area of induration and warmth and tenderness, no erythema, Procedures/MDM 31-year-old female is here with mental status. Her vital signs are otherwise normal. She was given a prescription for Keflex. She was encouraged also use warm compresses and continue to breast-feed. Recommended this patient follow up with her primary care doctor within 48 hours or return to the emergency room for any worsening of symptoms. However this time I do believe there is suitable for outpatient management. I answered all their questions and they agreed with the plan and were discharged home. Departure Diagnosis: Primary Impression: Mastitis Condition: Stable Patient Instructions: Mastitis Additional Instructions: Call your primary care doctor TOMORROW for an appointment during the next 1-2 days.See the doctor sooner or return here if your condition worsens before your appointment time. JOSH SCHULTZ PA-C Jan 25, 2017 08:21
== END 2017-01-25 08:21 | disposition home or self-care (01) ==
LOC: FTE 08:00
DX: N61.0 Mastitis without abscess (principal)
CPT/HCPCS: 99283

== ENCOUNTER 2017-04-10 20:35 | Emergency (ER) | payer SELFPAY ==
[~2017-04-10] VITALS: Ht 162.6 cm; Wt 75.5 kg
[2017-04-10 20:57] VITALS: Ht 162.6 cm; Wt 75.5 kg
== END 2017-04-11 00:10 | disposition left against medical advice (07) ==
LOC: FTE 20:35 → E/R 04-11 00:10
DX: Z53.21 Procedure and treatment not carried out due to patient leaving prior to being seen by health care provider (principal)